=== PATIENT | female | born 1975 | race Caucasian/White ===

== ENCOUNTER → 2017-09-19 | Outpatient (CLI) | payer BC ==
--- NOTE | 2017-09-19 08:40 | RAD ---
Indication: Abnormal liver function test Technique: Grayscale, color Doppler and spectral waveform images of the abdomen. Comparison: None Findings: Visualized pancreas is within normal limits. No gallstones, pericholecystic fluid of bowel wall thickening. IVC is patent. Liver measures 18 cm in craniocaudal dimension with normal echogenicity and without focal lesion. Main portal vein is patent. Hepatic veins are patent. CBD measures 3 mm and is within normal limits. Right kidney measures 10.5 cm in length without hydronephrosis. Impression: 1. No cholelithiasis or sonographic evidence of acute cholecystitis. 2. No hepatomegaly or sonographic evidence of hepatic steatosis.
== END | disposition home or self-care (01) ==
LOC: US 07:43
PROVIDERS: ATTEND Nurse Practitioner Family
DX: R79.89 Other specified abnormal findings of blood chemistry (principal)
CPT/HCPCS: 76705